=== PATIENT | male | born 1940 | race Caucasian/White ===

== ENCOUNTER → 2018-11-24 | Outpatient (CLI) | payer BC ==
[~2018-11-24] VITALS: Ht 180.3 cm; Wt 99.8 kg
[~2018-11-24] MED LIST: ADENOSINE 84 MG in GIVE UN-DILUTED 0 ML IV STA
[2018-11-24 09:07] LABS: Eosinophils # (auto) 0.2 uL; Eosinophils % (auto) 2.7 % (0.0-7.0); Hemoglobin 15.3 g/dL (13.5-17.5); Monocytes # (auto) 0.8 uL; Nucleated Red Blood Cells % 0.1 %; Platelet Count (auto) 216 10^3/uL (140-450); White Blood Cell 8.5 10^3/uL (4.4-10.8)
[2018-11-24 09:09] LABS: Basophils # (auto) 0.1 uL; Basophils % (auto) 0.7 % (0.0-2.0); Hematocrit 44.9 % (41.0-53.0); Lymphocytes # (auto) 3.1 uL; Lymphocytes % (auto) 36.1 % (10.0-50.0); Mean Corpuscular Hemoglobin 34.9 pg (28.0-32.0); Mean Corpuscular Hgb Conc. 34.1 g/dL (32.0-36.0); Mean Corpuscular Volume 102.4 fL (80.0-100.0); Monocytes % (auto) 9.2 % (0.0-12.0); Neutrophils # (auto) 4.3 uL; Neutrophils % (auto) 51.3 % (37.0-80.0); Red Blood Cells 4.39 10^6/uL (4.5-5.90); Red Cell Distribution Width 14.2 % (11.8-14.3)
[2018-11-24 11:42] LABS: Potassium 4.5 mmol/L (3.5-5.1)
[2018-11-24 12:22] LABS: Albumin 3.6 g/dL (3.4-5.0); BUN/Creatinine Ratio 24.2; Bilirubin, Total 0.5 mg/dL (0.2-1.0); Calcium 9.3 mg/dL (8.5-10.1); Total Protein 7.1 g/dL (6.4-8.2)
== END | disposition home or self-care (01) ==
LOC: LAB 08:37
DX: E78.00 Pure hypercholesterolemia, unspecified (principal)
CPT/HCPCS: 36415; 80053; 80061; 85025; J0153

== ENCOUNTER → 2018-11-24 | Outpatient (CLI) | payer BC | END | disposition home or self-care (01) | LOC: XYW 08:19 | PROVIDERS: ATTEND Internal Medicine | DX: R07.9 Chest pain, unspecified (principal) | CPT/HCPCS: 78452; 93017; A9500 ==

== ENCOUNTER → 2019-04-04 | Outpatient (CLI) | payer BC, MEDICARE ==
[~2019-04-04] VITALS: Ht 180.3 cm; Wt 99.8 kg
== END | disposition home or self-care (01) ==
LOC: XYW 11:15
PROVIDERS: ATTEND Internal Medicine
DX: R07.89 Other chest pain (principal)
CPT/HCPCS: 78452; 93017; A9500; J0153

== ENCOUNTER → 2019-04-06 | Outpatient (CLI) | payer BC, MEDICARE ==
[~2019-04-06] MED LIST changes: -ADENOSINE 84 MG in GIVE UN-DILUTED 0 ML IV STA; +ALBUAER3 IN; +ALEN1TAB32 PO; +ASPI-404 PO; +ATOR1TAB PO; +CALC-179 PO; +LEVO25TA6 PO; +LORA-622 PO; +MODA200T50 PO; +MULTCAP45 PO
[2019-04-06 09:26] LABS: Basophils # (auto) 0.1 uL; Neutrophils # (auto) 5.1 uL
[2019-04-06 09:29] LABS: Basophils % (auto) 0.7 % (0.0-2.0); Eosinophils # (auto) 0.2 uL; Eosinophils % (auto) 2.4 % (0.0-7.0); Hematocrit 46.5 % (41.0-53.0); Hemoglobin 15.9 g/dL (13.5-17.5); Lymphocytes # (auto) 2.9 uL; Lymphocytes % (auto) 32.2 % (10.0-50.0); Mean Corpuscular Hemoglobin 35.5 pg (28.0-32.0); Mean Corpuscular Hgb Conc. 34.3 g/dL (32.0-36.0); Mean Corpuscular Volume 103.3 fL (80.0-100.0); Monocytes # (auto) 0.8 uL; Monocytes % (auto) 8.7 % (0.0-12.0); Platelet Count (auto) 251 10^3/uL (140-450); Red Cell Distribution Width 13.9 % (11.8-14.3); White Blood Cell 9.1 10^3/uL (4.4-10.8)
[2019-04-06 09:53] LABS: Albumin 3.8 g/dL (3.4-5.0); Calcium 9.3 mg/dL (8.5-10.1); Potassium 4.3 mmol/L (3.5-5.1)
[2019-04-06 09:55] LABS: Free T4 (Free Thyroxine) 0.73 ng/dL (0.89-1.76); INR 0.93 (0.9-1.15); Partial Thromboplastin Time 24.2 sec (23.64-32.05)
[2019-04-06 09:56] LABS: Folate (Folic Acid) 23.29 ng/mL (5.38-24)
[2019-04-06 09:59] LABS: BUN/Creatinine Ratio 23.4; Bilirubin, Total 0.5 mg/dL (0.2-1.0); Total Protein 7.3 g/dL (6.4-8.2)
== END | disposition home or self-care (01) ==
LOC: LAB 09:12
PROVIDERS: ATTEND Internal Medicine
DX: E78.5 Hyperlipidemia, unspecified (principal)
CPT/HCPCS: 36415; 80053; 80061; 82306; 82607; 82746; 83036; 84154; 84439; 84443; 85025; 85610; 85730

== ENCOUNTER 2019-04-09 10:08 | Inpatient (IN) | payer BC, MEDICARE ==
[~2019-04-09] VITALS: Ht 180.3 cm; Wt 96.2 kg
[2019-04-09] MEDS ORDERED: LORA-622 PO (10:35)
[2019-04-09] MEDS ORDERED: CALC-179 PO (10:35)
[2019-04-09] MEDS ORDERED: ASPI-404 PO (10:35)
[2019-04-09] MEDS ORDERED: MULTCAP45 PO (10:35)
[2019-04-09] MEDS ORDERED: ALEN1TAB32 PO (10:35)
[2019-04-09] MEDS ORDERED: ATOR1TAB PO (10:35)
[2019-04-09] MEDS ORDERED: LEVO25TA6 PO (10:35)
[2019-04-09] MEDS ORDERED: MODA200T50 PO (10:35)
[2019-04-09] MEDS ORDERED: MIDAZOLAM HCL 1MG/1ML-2 ML VIAL ONE (10:47)
[2019-04-09] MEDS ORDERED: ANGIOMAX 250 MG VIAL IV ONE (10:47)
[2019-04-09] MEDS ORDERED: fentaNYL CITRATE 100 MCG/2 ML VL ONE (10:47)
[2019-04-09] MEDS ORDERED: SODIUM CHL 0.9% 0 ML ONE (10:48)
[2019-04-09] MEDS ORDERED: HEPARIN SODIUM (PORCINE) 5000 UNITS/ML 1ML VIAL ONE (10:49)
[2019-04-09] MEDS ORDERED: VERAPAMIL 2.5MG/ML INJ 2ML VIAL IV ONE (10:49)
[2019-04-09] MEDS ORDERED: IOHEXOL 350 MG/ML 100ML IJ ONE (11:14)
[2019-04-09] MEDS: MODAFINIL 200 MG PO SCH (12:00)
[2019-04-09] MEDS ORDERED: POLYETHYLENE GLYCOL 17 GM PWDR PO PRN (12:30)
[2019-04-09] MEDS ORDERED: ALENDRONATE SODIUM PO SCH (12:30)
[2019-04-09] MEDS ORDERED: NITROGLYCERIN 0.4 MG SL TAB SL PRN (12:30)
[2019-04-09] MEDS ORDERED: HYDROcodone-ACET 5/325MG TAB PO PRN (12:30)
[2019-04-09] MEDS ORDERED: MORPHINE SULF INJ 2 MG/ML SYRINGE 1ML IV PRN (12:30)
[2019-04-09] MEDS ORDERED: diphenhdrAMINE HCL 25 MG CAP PO PRN (12:30)
[2019-04-09] MEDS ORDERED: ACETAMINOPHEN 325 MG TAB PO PRN (12:30)
[2019-04-09] MEDS ORDERED: ZOLPIDEM TARTRATE 5 MG TAB PO PRN (12:30)
[2019-04-09] MEDS ORDERED: ONDANSETRON HCL 4 MG/2 ML VIAL IV PRN (12:30)
[2019-04-09] MEDS ORDERED: ENOXAPARIN SOD 100 MG/1 ML SYRINGE SC ONE (12:45)
[2019-04-09] MEDS ORDERED: LEVOTHYROXINE SODIUM 25 MCG TAB PO ONE (12:45)
--- NOTE | 2019-04-09 12:53 | NUR ---
Faxed transfer request/clinical information to [facility] transfer center.
[2019-04-09] MEDS: CALCIUM PO SCH (13:00)
[2019-04-09] MEDS: MAGNESIUM PO SCH (13:00)
--- NOTE | 2019-04-09 13:40 | NUR ---
S/P [facility] BR[facility]DA DIAS brought to 283 following Left Cardiac catheterization, on director of cardiac rehabilitation. Patient transferred to unit bed, connected to cloth examiner hand #66. Catheterization site assessed to right wrist for any bleeding, redness or swelling. Vasc band device in place, per field laborer nurse Imani a total of 6ml of air has been removed, no bleeding was noted. radial pulses on affected arm assessed for positive tissue perfusion. Patient instructed on need to notify staff immediately if any pain, burning or wetness to site, and any lower back pain. All questions and concerns addressed, patient verbalized understanding of all education and instruction.
[2019-04-09 13:42] VITALS: BP 150/72
[2019-04-09] MEDS ORDERED: ALBUAER3 IN (13:50)
[2019-04-09] MEDS ORDERED: ALBUTEROL SULF 2.5 MG/0.5ML(0.5%) NEB SOLN NEB PRN (14:00)
[2019-04-09 14:48] VITALS: BP 150/72
--- NOTE | 2019-04-09 15:16 | NUR ---
BARREL FINISHER AT BEDSIDE
[2019-04-09] MEDS: ACETAMINOPHEN 500 MG TAB PO PRN ×2 (16:41→23:52)
[2019-04-09] MEDS ORDERED: SODIUM CHLORIDE 0.9% 1,000 ML IV SCH (16:45)
[2019-04-09 16:47] VITALS: BP 126/59
--- NOTE | 2019-04-09 17:35 | NUR ---
Vasc band device removed remaining air removed from vasc band, site CDI, no bruising, swelling or bleeding was noted, site covered with sterile gauze, pt instructed to call immediately of any sudden, pain, swelling, or bleeding occurs, both pt and family verbalized understanding, cont care
--- NOTE | 2019-04-09 18:00 | NUR ---
RE: TRANSFER SPOKE WITH GABE (BARB CIGARETTE TIPPER) FROM [facility], STATES HE NEEDS THE MD REQUESTING THE TRANSFER TO CALL AND SPEAK WITH CARDIOTHORACIC SURGEON, MESSAGED DR ROME AND PROVIDED PHONE NUMBER , CONT CARE
--- NOTE | 2019-04-09 19:08 | NUR ---
CARDIOLOGY AT BEDSIDE DR ROME AT BEDSIDE, DISCUSSING POC WITH PT AND SPOUSE, REPORT ENDORSED TO NIGHT CINDI SOUSA
--- NOTE | 2019-04-09 19:30 | NUR ---
Opening Shift Assumed care of patient, awake and alert. No S/S of distress/SOB or pain. Insructed on POC and to callfor assist PRN, will continue to monitor for changes Q1hr and PRN. at bedside. Fall and safety precautions in place. Call light within reach.
--- NOTE | 2019-04-09 19:50 | NUR ---
Respiratory note: PT AWARE OF ORDER FOR CPAP AT [facility], DOES NOT WANT TO WEAR AT THIS TIME. PT AWARE TO CALL IF HE WANTS TO GO ON HOSPITAL CPAP. REMAINS ON RA, SPO2 95%, HR 71, RR 18. BREATH SOUNDS CLEAR/DIMINISHED THROUGHOUT. NO PRN TX GIVEN, NOT INDICATED. AT BEDSIDE.
--- NOTE | 2019-04-09 20:08 | NUR ---
VINH GURROLA Patient requesting laxative, states he normally takes one at home. Dr. Gipson contacted for orders. New orders received, will input and carry out.
[2019-04-09] MEDS ORDERED: BISACODYL 5 MG EC TAB PO ONE (20:15)
[2019-04-09] MEDS ORDERED: BISACODYL 5 MG EC TAB PO PRN (20:15)
[2019-04-09] MEDS: ENOXAPARIN SOD 100 MG/1 ML SYRINGE SC SCH ×2 (21:04→21:12)
[2019-04-09] MEDS: ATORVASTATIN 20 MG TAB PO SCH ×2 (21:04→21:12)
[2019-04-09 21:48] VITALS: BP 125/74
[2019-04-09] MEDS ORDERED: ATORVASTATIN 20 MG TAB PO SCH (22:00)
--- NOTE | 2019-04-09 22:00 | NUR ---
REFUSING Patient refusing scheduled 2200 medications, stating "already took them this morning." Scheduled 2200 medications not administered. Patient also refusing to be connected to IV fluids, stating "I can't sleep with this." Patient disconnected from IV fluids. Will continue to monitor
--- NOTE | 2019-04-09 23:50 | NUR ---
CHEST PAIN Patient called complaining of chest pain 11/20. Upon entering room, patient stated chest pain has subsided. Vitals taken; BP 135/80, HR 79, O2 94% on RA. EKG done, showing "SR with frequent PVCs." Informed patient that per chest pain protocol, nitro is to be administered. Patient refusing nitro and morphine, requesting tylenol for headache. Patient medicated with PRN medication (see emar). EKG shown to hospitalist Porfirio Barragan EMAIL MARKETING INTERN and was informed of patient's complaints. New orders received, will input and carry out. Will continue to monitor
[2019-04-10] VITALS (11 sets, daily range): BP systolic 106–156; BP diastolic 65–91
--- NOTE | 2019-04-10 00:10 | NUR ---
LAB Zinc Chloride Operator at bedside for lab draws
--- NOTE | 2019-04-10 00:21 | NUR ---
CHEST PAIN Patient called and complained of chest pain. Upon entering room, patient stated chest pain has subsided again. Vitals taken; BP 144/75, HR 75, O2 93% on RA. Offered patient nitro and morphine, refused. attempted to educate patient that chest pain could be cardiac related and to accept nitro and morphine, patient still refusing. Patient stood up and stated chest pain is "acid reflux." Patient stated he normally takes TUMS at home before bed. Informed patient that hospitalist will be paged for orders at 0100. Will continue to monitor
[2019-04-10 00:42] LABS: Anion Gap 6 (5-15); BUN/Creatinine Ratio 20.2; Blood Urea Nitrogen 18 mg/dL (7-18); Calcium 8.2 mg/dL (8.5-10.1); Carbon Dioxide 29 mmol/L (21-32); Chloride 104 mmol/L (98-107); GFR African American 107 mL/min; GFR Non-African American 88 mL/min; Glucose 91 mg/dL (74-106); Magnesium 2.2 mg/dL (1.6-2.6); Sodium 139 mmol/L (136-145)
[2019-04-10] MEDS ORDERED: CALCIUM CARB 500 MG CHEW TAB PO PRN (01:00)
[2019-04-10] MEDS ORDERED: CALCIUM CARB 500 MG CHEW TAB ONE (01:11)
--- NOTE | 2019-04-10 01:31 | NUR ---
CHEST PAIN Patient called and complained of chest pain 6/10. Upon entering room, patient stated chest pain has subsided. Vitals taken; BP 156/69, HR 81, O2 91% on RA. Patient accepted nitro at this time (see emar). Continued to stay in room. At 0135: vitals taken again; BP 106/65, HR 89, O2 93%, chest pain 0/10. Patient refused second dose of nitro at this time. Informed him to call if chest pain returns. Patient and verbalized understanding. Will continue to monitor
--- NOTE | 2019-04-10 02:03 | NUR ---
VINH Gipson informed of all events throughout night so far, including lab results and orders received from hospitalist Porfirio Barragan NP. New orders received from Dr. Gipson. Will input and carry out. Will continue to monitor patient.
--- NOTE | 2019-04-10 04:19 | NUR ---
CHEST PAIN Patient called complaining of chest pain. Upon entering room with secondary RN, patient was found standing in doorway. Vitals taken; BP 117/66, HR 88, O2 94% on RA. EKG done, showing "normal sinus rhythm, 81bpm." Patient stated chest pain only occurs when lying down, but subsides with sitting or standing. Patient medicated with PRN morphine (see emar) and informed to call if chest pain reoccurs. Patient verbalized understanding and agreement, ambulated self with steady gait back to room and to bed. EKG placed in chart. Will continue to monitor.
[2019-04-10] MEDS ORDERED: PANTOPRAZOLE 40 MG TAB PO ONE (07:00)
[2019-04-10] MEDS ORDERED: LEVOTHYROXINE SODIUM 25 MCG TAB PO SCH (07:00)
[2019-04-10] MEDS: MODAFINIL 200 MG PO SCH (08:00)
--- NOTE | 2019-04-10 08:00 | NUR ---
OPENING NOTE ASSUMED CARE OF PATIENT AWAKE AND ALERT. NO S/S OF DISTRESS NOTED. PT DENIES CHEST PAIN AT THIS TIME. PT AND UPDATED ON POC AND ALL QUESTIONS ANSWERED. BED IS IN LOWEST, LOCKED POSITION WITH SIDE RAILS UP X2 AND CALL LIGHT WITHIN REACH. WILL CONTINUE TO MONITOR Q1H AND PRN.
--- NOTE | 2019-04-10 08:55 | NUR ---
Transfer: E mailed Jonelle Jama at [facility] to see if I have authorization to send pt to [facility]. [facility] left message with Yari BARBER that they have bed for pt.
[2019-04-10] MEDS: MULTIPLE VITAMIN TAB PO SCH (09:18)
[2019-04-10] MEDS: LORATADINE 10 MG TAB PO SCH (09:18)
[2019-04-10] MEDS: LEVOTHYROXINE SODIUM 25 MCG TAB PO SCH (09:19)
[2019-04-10] MEDS: MAGNESIUM PO SCH (09:20)
[2019-04-10] MEDS: ENOXAPARIN SOD 100 MG/1 ML SYRINGE SC SCH ×2 (09:20→21:36)
[2019-04-10] MEDS: CALCIUM PO SCH (09:20)
--- NOTE | 2019-04-10 09:42 | NUR ---
Transfer: Dylan CANALES informed me that pt has auth for transfer but she did not have auth #. I called Jonelle Jama and had to leave her a message to give me auth # for transport and facility, she has not e mailed me back.
--- NOTE | 2019-04-10 09:47 | NUR ---
TRANSFER RECEIVED PHONE CALL FROM JAVIER AT [facility]. REQUESTING TO SPEAK TO [employer]. TRANSFERRED TO AND PROVIDED WITH CONTACT INFORMATION.
--- NOTE | 2019-04-10 09:55 | NUR ---
Transfer: was informed by Courtney at [facility] they do not have a bed as of yet. Jonelle toledo mailed me back and am waiting for response for auth
[2019-04-10] MEDS ORDERED: ASPirin-EC 81 mg tab PO SCH (10:00)
--- NOTE | 2019-04-10 10:00 | NUR ---
AT BEDSIDE DR. JUSTICE AT BEDSIDE DISCUSSING POC WITH PT.
--- NOTE | 2019-04-10 11:45 | NUR ---
Respiratory note: PATIENT SEEN FOR PRN MED-NEB TX. MED-NEB NOT INDICATED AT THIS TIME PATIENT IS IN NO ACUTE RESPIRATORY DISTRESS AND DENIES NEED. PATIENT INSTRUCTED TO CALL FOR RT IF HE FELT THE NEED FOR TX AT A LATER TIME. SPO2 97% R/A
--- NOTE | 2019-04-10 14:00 | NUR ---
AMA PATIENT REQUESTING TO GO OFF UNIT. PATIENT EDUCATED ON DANGERS OF LEAVING UNIT BECAUSE HE WILL NOT BE MONITORED/TELEMETRY MONITORED. PATIENT VERBALIZED UNDERSTANDING. AMA FORM SIGNED. PATIENT WHEELED TO OFFICE BY OFFICE STAFF.
--- NOTE | 2019-04-10 14:05 | NUR ---
SPOKE TO MD DR. ROME ON UNIT. INQUIRING TO WHERE PATIENT IS. INFORMED THAT PATIENT SIGNED AMA TO LEAVE UNIT. SPOKE TO MD REGARDING PATIENTS C/O CHEST PAIN ON NOC SHIFT. PATIENT HAS HAD NO EPISODES OF CHEST PAIN ON DAY SHIFT. ORDERS RECEIVED FOR: STAT EKG FOR ALL C/O CHEST PAIN AND TO CONTACT DR. ROME FOR UPGRADE ORDERS. Addendum: 04/10/19 at 1421 by Annemarie Delaney RN RN MD ALSO REQUESTING PATIENT BE PLACED ON PROTONIX PO 40 MG DAILY.
--- NOTE | 2019-04-10 14:18 | NUR ---
RETURNED TO UNIT PATIENT RETURNED TO UNIT. DENIES ANY DISTRESS AT THIS TIME. RE-ENCOURAGED TO NOTIFY STAFF FOR ALL C/O CHEST PAIN. VERBALIZED UNDERSTANDING. CALL LIGHT WITHIN REACH.
--- NOTE | 2019-04-10 15:34 | NUR ---
Transfer: Transfer on hold until Heather at [facility] aware of on hold status.
--- NOTE | 2019-04-10 15:51 | NUR ---
SPOKE TO MD SPOKE TO DR. JUSTICE REGARDING PT REQUEST FOR IBUPROFEN. MD TO PLACE ORDER.
[2019-04-10] MEDS ORDERED: IBUPROFEN 400 MG TAB PO PRN ×2 (16:00)
--- NOTE | 2019-04-10 16:00 | NUR ---
SPOKE TO SPOKE TO DR. JUSTICE. PT REQUESTING IBUPROFEN 600MG. OKAY WITH DOSE BEING INCREASED.
--- NOTE | 2019-04-10 16:16 | NUR ---
MEDICATION RETURNED IBUPROFEN REMOVED FROM [facility]. WENT TO PATIENTS ROOM TO ADMINISTER, PT NOW STATING HE DOES NOT WANT THE MEDICATION, BUT JUST WANTED 'TO MAKE SURE [I] HAD SOMETHING TO TAKE IF I NEEDED IT'. PT REQUESTING TO KEEP MEDICATION AT BEDSIDE FOR 'WHEN [HE] NEEDS IT'. INFORMED PT I CANNOT LEAVE MEDICATION AT BEDSIDE. PT RELUCTANT, BUT VERBALIZED UNDERSTANDING. MEDICATION RETURNED TO [facility].
--- NOTE | 2019-04-10 16:40 | NUR ---
CPAP PATIENT STATING HIS CPAP MACHINE IS NOT WORKING. INFORMED RT, SPOKE TO ESTHER, REGARDING PT REQUEST FOR REPLACEMENT CPAP. AWARE.
--- NOTE | 2019-04-10 18:38 | NUR ---
Respiratory note: NO PRN TX GIVEN AT THIS TIME, PT DENIES SOB OR NEED FOR PRN TX. SPO2 95% ON RA, HR 96, RR 18. BREATH SOUNDS CLEAR THROUGHOUT. PT STATES HE WILL GO ON CPAP BETWEEN 2100 AND 2200, AWARE TO CALL FOR CPAP OR PRN TX. NO DISTRESS NOTED, WILL CONTINUE WITH CARE.
--- NOTE | 2019-04-10 21:17 | NUR ---
Respiratory note: PT CALLED FOR CPAP AT THIS TIME. ADJUSTED PTS PRESSURES AND MEDIUM MASK TO COMFORTABLE LEVEL/FIT. NO SKIN BREAKDOWN NOTED. HOSPITAL OWNED HOME CPAP SET TO 8cmH20. HUMIDIFIER SET TO 2 AND FILLED TO FILL LINE WITH STERILE WATER. CPAP IS PLUGGED INTO RED OUTLET. PT REFUSING CONT. PULSE OX MONITOR AT THIS TIME, STATES HE WILL BE FINE WITHOUT IT, DOESN'T USE ONE AT HOME. PT THEN TOOK MASK OFF, STATES HE WILL GO ON CPAP AROUND 2300. WILL CHECK BACK AT THAT TIME. PT DENIES ANY OTHER NEEDS, AWARE TO CALL FOR ASSISTANCE.
[2019-04-10] MEDS: CARVEDILOL 3.125 MG TAB PO SCH (21:33)
[2019-04-10] MEDS: ATORVASTATIN 20 MG TAB PO SCH (21:34)
--- NOTE | 2019-04-10 23:25 | NUR ---
PAIN PATIENT REPORTS PAIN RATED 3/10 TO CHEST. PATIENT STATES IT IS "NON-CARDIAC RELATED". PATIENT REFUSES EKG. INSTRUCTED PATIENT OF REQUIREMENT OF EKG FOR EACH EPISODE OF CHEST PAIN PER MD ORDERS. PATIENT STILL REFUSES. PATIENT GIVEN PRN PAIN MEDICATION ORDERED.
--- NOTE | 2019-04-10 23:25 | NUR ---
Respiratory note: PT REMAINS OFF CPAP AT THIS TIME. CPAP ON STANDBY AT BEDSIDE, PT APPEARS TO BE SLEEPING COMFORTABLY. RN NOTIFIED TO CALL IF PT GOES ON CPAP/NEEDS ASSISTANCE.
[2019-04-11] VITALS (8 sets, daily range): BP systolic 103–151; BP diastolic 62–86
--- NOTE | 2019-04-11 01:32 | NUR ---
PATIENT SITTING UP AT BEDSIDE WITH NO S/S OF DISTRESS NOTED. PATIENT DENIES PAIN AT THIS TIME.
--- NOTE | 2019-04-11 03:41 | NUR ---
Hospitalist paged PATIENT REQUESTING IBUPROFEN 600 MG. PATIENT STATES THEY ARE ALLOWED TO TAKE IT FOUR TIMES A DAY. PATIENT RECEIVED DOSE 4 HOURS AGO. WILL AWAIT CALL BACK OR ORDERS.
--- NOTE | 2019-04-11 03:59 | NUR ---
ORDERS RECEIVED PATIENT ALSO REFUSING EKG PER STANDING ORDER AT THIS TIME. PATIENT STATES PAIN IS POSITIONAL. WILL CONTINUE TO MONITOR. INFORMED PRIMARY RN AT THIS TIME.
[2019-04-11] MEDS ORDERED: IBUPROFEN 600 MG TAB PO ONE (04:00)
--- NOTE | 2019-04-11 06:55 | NUR ---
PATIENT RESTING WITH EYES CLOSED. NO S/S OF DISTRESS NOTED.
--- NOTE | 2019-04-11 07:16 | NUR ---
Respiratory note: PT FOUND TO BE OFF CPAP AT THIS TIME SLEEPING WITH NO DISTRESS NOTED. PT EASILY AWAKES AND STATES HE IS HAVING TROUBLE WITH CPAP MASK COMFORT. PT STATES HE EVEN BROUGHT HIS FROM HOME AND STATES HE "JUST CAN'T GET IT TOO FIT RIGHT". PT HAS NO CURRENT C/O SOB OR DIFF BREATHING, NO PRN MED NEB TX INDICATED AT THIS TIME. PT AND RN AWARE TO HAVE RT PAGED IF NEEDED. HR 76 RR 16 SPO2 93% ON RA.
--- NOTE | 2019-04-11 07:30 | NUR ---
PATIENT RESTING WITH EYES CLOSED. NO S/S OF DISTRESS NOTED.
[2019-04-11] MEDS: MODAFINIL 200 MG PO SCH (08:00)
[2019-04-11] MEDS: MULTIPLE VITAMIN TAB PO SCH (09:42)
[2019-04-11] MEDS: PANTOPRAZOLE 40 MG TAB PO SCH (09:42)
[2019-04-11] MEDS: CARVEDILOL 3.125 MG TAB PO SCH ×2 (09:43→21:59)
[2019-04-11] MEDS: ENOXAPARIN SOD 100 MG/1 ML SYRINGE SC SCH ×2 (09:43→22:00)
[2019-04-11] MEDS: LEVOTHYROXINE SODIUM 25 MCG TAB PO SCH (09:43)
[2019-04-11] MEDS: LORATADINE 10 MG TAB PO SCH (09:43)
[2019-04-11] MEDS: MAGNESIUM PO SCH (09:51)
[2019-04-11] MEDS: CALCIUM PO SCH (09:51)
[2019-04-11] MEDS ORDERED: NTG 0.1MG/HR TOPICAL PATCH TD PRN (10:00)
[2019-04-11] MEDS: IBUPROFEN 400 MG TAB PO PRN ×2 (10:49→23:36)
--- NOTE | 2019-04-11 12:01 | NUR ---
PATIENT MOVED TO ROOM 292A. ALL BELONGINGS TAKEN WITH HIM, AT BEDSIDE.
--- NOTE | 2019-04-11 19:00 | NUR ---
Opening Shift Note Assumed care of patient, awake and alert. No S/S of distress/SOB or pain. Instructed on POC and to call for assist PRN, will continue to monitor for changes Q1hr and PRN.
--- NOTE | 2019-04-11 21:54 | NUR ---
Patient refused some of his 2200 medications and also informed RN that he does not want to be woken up until 0730 tomorrow morning for his morning vital signs and would like to get some sleep tonight. RN informed patient to make nurse aware of any changes in condition or if not feeling well. RN is to continue to monitor and assess patient Q 1 hr and PRN.
[2019-04-11] MEDS: ATORVASTATIN 20 MG TAB PO SCH (22:02)
--- NOTE | 2019-04-12 00:38 | NUR ---
Hospitalist paged: Hospitalist paged regarding patient requesting "Tylenol 500mg" for mild pain.
--- NOTE | 2019-04-12 00:39 | NUR ---
Hospitalist returned page: Hospitalist returned page and updated on patient condition and request. New orders received and verified.
[2019-04-12] MEDS ORDERED: ACETAMINOPHEN 500 MG TAB PO ONE ×2 (00:44→00:45)
[2019-04-12] MEDS: IBUPROFEN 400 MG TAB PO PRN ×2 (05:20→21:09)
--- NOTE | 2019-04-12 07:39 | NUR ---
RECEIVED REPORT FROM NIGHT NURSE. PATIENT RESTING IN BED, NO DISTRESS NOTED. WILL CONTINUE TO MONITOR.
[2019-04-12] MEDS: MODAFINIL 200 MG PO SCH (08:00)
[2019-04-12 09:00] VITALS: BP 130/80
--- NOTE | 2019-04-12 09:22 | NUR ---
RT NOTE: WENT TO PTS ROOM TO ASSESS FOR PRN BREATHING TX, PT LAYING DOWN IN BED, NO S/S OF SOB. HR 66, SPO2 94%, RR 16. NO INDICATION FOR TX AT THIS TIME. WILL CONTINUE TO MONITOR PT.
[2019-04-12] MEDS: ENOXAPARIN SOD 100 MG/1 ML SYRINGE SC SCH ×2 (09:55→22:00)
[2019-04-12] MEDS: MULTIPLE VITAMIN TAB PO SCH (09:56)
[2019-04-12] MEDS: LEVOTHYROXINE SODIUM 25 MCG TAB PO SCH (09:56)
[2019-04-12] MEDS: LORATADINE 10 MG TAB PO SCH (09:56)
[2019-04-12] MEDS: CARVEDILOL 3.125 MG TAB PO SCH ×2 (09:56→22:00)
[2019-04-12] MEDS: PANTOPRAZOLE 40 MG TAB PO SCH (09:56)
[2019-04-12] MEDS: CALCIUM PO SCH (10:00)
[2019-04-12] MEDS: MAGNESIUM PO SCH (10:00)
--- NOTE | 2019-04-12 11:51 | NUR ---
Nutrition Assessment Notes please see attached link for complete assessment Est. Needs BW 95 [id number] kcal (23-25 kcal/kgBW), 95-104 gms pro (1.0-1.1 gms/kgBW). Will continue to monitor pertinent labs and reassess nutrient need prn Addendum: 04/12/19 at [address] Amended: Links added.
[2019-04-12 13:00] VITALS: BP 128/78
[2019-04-12] MEDS ORDERED: TEMAZEPAM 15 MG CAP PO PRN (13:15)
[2019-04-12 17:30] VITALS: BP 145/78
--- NOTE | 2019-04-12 18:14 | NUR ---
Respiratory note: ASSESSMENT FOR PRN MED NEB TX. HR 61, SPO2 96% ON ROOM AIR RR 17, BS DIMINISHED. PT PRESENTING NO RESPIRATORY DISTRESS AT THIS TIME. MED NEB TX NOT INDICATED. PT STATES HE DOES NOT WANT TO USE CPAP TONIGHT, PT AWARE TO HAVE RT PAGED IF TREATMENT IS NEEDED. WILL CONTINUE TO MONITOR.
--- NOTE | 2019-04-12 21:30 | NUR ---
Hospitalist paged: Hospitalist paged d/t patient requesting to have Tylenol 500 PRN for mild pain. Hospitalist returned page immediately and new orders received and verified.
[2019-04-12] MEDS ORDERED: ACETAMINOPHEN 500 MG TAB PO PRN (21:45)
[2019-04-12 22:00] VITALS: BP 132/76
--- NOTE | 2019-04-12 22:00 | NUR ---
Patient refused some of his 2199 medications including his Coreg d/t his heart rate being 59. Patient also informed RN that he does not want to be woken up until 0730 tomorrow morning for his morning vital signs and would like to get some sleep tonight just as yesterday. RN informed patient to make nurse aware of any changes in condition or if not feeling well. RN is to continue to monitor and assess patient Q 1 hr and PRN.
[2019-04-12] MEDS: ATORVASTATIN 20 MG TAB PO SCH (22:20)
[2019-04-12] MEDS: ACETAMINOPHEN 500 MG TAB PO PRN (23:33)
[2019-04-13 02:43] VITALS: BP 132/76
[2019-04-13] MEDS: CALCIUM CARB 500 MG CHEW TAB PO PRN (03:29)
[2019-04-13 05:00] VITALS: BP 146/82
[2019-04-13] MEDS: ACETAMINOPHEN 500 MG TAB PO PRN (05:12)
--- NOTE | 2019-04-13 07:59 | NUR ---
RE: [place] lea Romero RN from [facility], called to receive an update. Call transferred to SUNIL Gomez.
[2019-04-13] MEDS: MODAFINIL 200 MG PO SCH (08:05)
--- NOTE | 2019-04-13 08:15 | NUR ---
PT. ASSESSED FOR MN. TX., NO RESP. DISTRESS OR SOB NOTED. PT. SITTING IN A CHAIR, FINISHING WITH HIS BREAKFAST. IN ROOM AT THIS TIME. HR=64,RR=16,SP02=94% ON RA. PT. STATES TX. NOT NEEDED AT THIS TIME. PT. IS AWARE HE MAY CALL IF HE NEEDS ONE. NO TX. GIVEN
--- NOTE | 2019-04-13 08:15 | NUR ---
Morning note patient sitting in chair at bedside with even and unlabored respirations, no distress noted. Instructed patient on POC, fall precautions and to call for assistance as needed. patient verbalized understanding. Fall precautions in place with bed in lowest locked position, x2 side rails up and call light within reach. Patient's spouse at bedside. Will continue to monitor q1hr & PRN.
[2019-04-13 09:00] VITALS: BP 131/75
--- NOTE | 2019-04-13 09:00 | NUR ---
I called [facility] transfer center and spoke with Ricky to confirm that we are still needing a bed for this patient-and that we had faxed updated clinical information yesterday afternoon and spoke with Ananda. Per Ricky she will have Heather call me when a bed becomes available.
[2019-04-13] MEDS: CALCIUM PO SCH (10:00)
[2019-04-13] MEDS: MAGNESIUM PO SCH (10:00)
[2019-04-13] MEDS: LORATADINE 10 MG TAB PO SCH (10:27)
[2019-04-13] MEDS: MULTIPLE VITAMIN TAB PO SCH (10:27)
[2019-04-13] MEDS: CARVEDILOL 3.125 MG TAB PO SCH ×2 (10:28→22:11)
[2019-04-13] MEDS: LEVOTHYROXINE SODIUM 25 MCG TAB PO SCH (10:28)
[2019-04-13] MEDS: ENOXAPARIN SOD 100 MG/1 ML SYRINGE SC SCH ×2 (10:29→22:11)
[2019-04-13] MEDS: PANTOPRAZOLE 40 MG TAB PO SCH (10:29)
--- NOTE | 2019-04-13 10:45 | NUR ---
Patient ambulating Steady gait, no distress noted. Patient spouse at his side.
[2019-04-13 13:00] VITALS: BP 115/74
--- NOTE | 2019-04-13 14:32 | NUR ---
RE: renal social worker spoke with SUNIL Greenberg, to receive update on transfer. This RN to be notified when patient is assigned to a bed at [facility].
--- NOTE | 2019-04-13 14:51 | NUR ---
Patient resting in bed with even and unlabored respirations, no distress noted. Call light within reach. Patient's spouse at bedside. Will continue to monitor q1hr & PRN.
--- NOTE | 2019-04-13 14:55 | NUR ---
Information provided to patient Information received from SUNIL Greenberg, provided to the patient. - [facility] ext. [phone]
--- NOTE | 2019-04-13 15:09 | NUR ---
I placed [facility] on will-call pending transfer to [facility]-Medicare form faxed to [facility]-provided them with patient's Medicare # [id number]. I called [facility] to check on patient's replacement CPAP tubing, they are asking for specific information on CPAP machine-provided contact information to nurse Yin to provide to patient ([facility] [phone] [email or web address] for Maru).
[2019-04-13 17:22] VITALS: BP 115/67
--- NOTE | 2019-04-13 18:50 | NUR ---
Closing note patient resting in bed with even and unlabored respirations, no distress noted. Fall precautions in place with bed in lowest locked position, x2 side rails up and call light within reach.
--- NOTE | 2019-04-13 19:20 | NUR ---
Care endorsed to CINDI Razo.
--- NOTE | 2019-04-13 19:26 | NUR ---
RT NOTE PT WAS SEEN BY RT FOR PRN HHN TX. PT IS SLEEPING WITHOUT SOB OR DISTRESS. NO PRN HHN TX INDICATED AT THIS TIME. HR 86, RR 18, BS CLEAR/DIM, POX 96% ON ROOM AIR. PT AWARE TO CALL IF TX NEEDED. RT WILL RETURN TO SEE WHEN PT WANTS TO GO ON CPAP IN A LITTLE BIT. Addendum: 04/13/19 at 1928 by Erica Garcia RT Amended: Links added.
[2019-04-13 22:00] VITALS: BP 131/69
[2019-04-13] MEDS: ATORVASTATIN 20 MG TAB PO SCH (22:10)
--- NOTE | 2019-04-13 22:27 | NUR ---
RT NOTE PT WAS SEEN BY RT FOR PLACEMENT OF CPAP FOR NOC USE. PT PLACED ON HOSPITAL OWNED CPAP, RESPIRATORY 1, WITH NASAL MASK. CPAP IS PLUGGED TO RED OUTLET. HUMIDIFIER IS FILLED TO FILL LINE AND SET TO 3 HUMIDITY. PT WORE CPAP LESS THAN 2 MINUTES STATING THAT IT IS TOO LOUD AND HE CANNOT WEAR IT TONIGHT. PT AWARE OF RISKS NOT WEARING CPAP AND WILL CALL IF HE CHANGES HIS MIND. PT WAS OFFERED SUPPLEMENTAL O2 VIA NASAL CANNULA IN LIEU OF CPAP AND HE REFUSED THAT WELL. RT REQUESTED PT TO WEAR BEDSIDE POX SO THAT WE COULD MONITOR HIM WHILE SLEEPING, PT REFUSED STATING HE DOES NOT HAVE ONE AT HOME AND WILL BE FINE WITHOUT IT HERE. CONT ORDERED Addendum: 04/14/19 at 0031 by Erica Garcia RT Amended: Links added.
[2019-04-13] MEDS: IBUPROFEN 400 MG TAB PO PRN (23:11)
[2019-04-14] MEDS: CALCIUM CARB 500 MG CHEW TAB PO PRN (00:06)
--- NOTE | 2019-04-14 00:45 | NUR ---
REPORT GIVEN TO EMILIANO/RN TO ASSUME CARE OF PATIENT.
--- NOTE | 2019-04-14 00:45 | NUR ---
Received patient from Dung PUENTE. Patient is resting in bed, no complaints of pain, SOB, or distress. Call light is within reach. Will continue to monitor.
[2019-04-14] MEDS: ACETAMINOPHEN 500 MG TAB PO PRN (04:06)
[2019-04-14 05:00] VITALS: BP 119/69
--- NOTE | 2019-04-14 05:46 | NUR ---
Bed for [facility] Baron from case management called. Patient has been accepted to [facility] unit 7100, room #1 bed #3. The accepting MD is Dionicio. Phone number for report is [phone]. [facility] is siphon operator. If any questions, phone number to reach [facility] is [phone].
--- NOTE | 2019-04-14 06:18 | NUR ---
Called Christian due to paperwork not being filled out by discharging MD, she asked if the hospitalist, could do it. The hospitalist stated he did not feel comfortable filling out transfer paperwork on a patient he has not seen or is familiar with. Phone number provided for Dr. Gipson, , to call for transfer orders.
--- NOTE | 2019-04-14 06:36 | NUR ---
Called phone number provided for Dr. Gipson, , regarding transfer orders, the number called has a voicemail box that has not been set up yet. Will try calling again.
--- NOTE | 2019-04-14 07:11 | NUR ---
Called [facility], spoke with Ninoska, transport to be here for warehouse order picker around 10:00am.
--- NOTE | 2019-04-14 07:15 | NUR ---
Called [facility] to give report and time for transport, spoke with Lenka. Phone number provided for call back, she stated her battery charger will give a call back in 15-20 minutes.
[2019-04-14 08:00] VITALS: BP 121/75
[2019-04-14] MEDS: MODAFINIL 200 MG PO SCH (08:00)
--- NOTE | 2019-04-14 08:04 | NUR ---
Called [facility] and gave report to Lucie PUENTE. All questions and concerns answered. Updated her on time the [facility] will be picking up the patient, she verbalized understanding.
--- NOTE | 2019-04-14 08:12 | NUR ---
Endorsed care to Chantal PUENTE.
[2019-04-14 09:00] VITALS: BP 121/75
[2019-04-14] MEDS: PANTOPRAZOLE 40 MG TAB PO SCH (09:20)
[2019-04-14] MEDS: MULTIPLE VITAMIN TAB PO SCH (09:20)
[2019-04-14] MEDS: LEVOTHYROXINE SODIUM 25 MCG TAB PO SCH (09:20)
[2019-04-14] MEDS: LORATADINE 10 MG TAB PO SCH (09:20)
[2019-04-14] MEDS: ENOXAPARIN SOD 100 MG/1 ML SYRINGE SC SCH (09:20)
[2019-04-14] MEDS: CARVEDILOL 3.125 MG TAB PO SCH (09:21)
[2019-04-14] MEDS: MAGNESIUM PO SCH (09:23)
[2019-04-14] MEDS: CALCIUM PO SCH (09:23)
--- NOTE | 2019-04-14 09:50 | NUR ---
PT. ASSESSED FOR MN. TX., NO RESP. DISTRESS OR SOB NOTED. PT. IS SITTING UP IN A CHAIR AWAITING TRANSPORT TO [facility]. HR=71,RR=16,SP02=95% ON RA. PRN. TX. NOT INDICATED AT THIS TIME. NO TX. GIVEN.
--- NOTE | 2019-04-14 10:31 | NUR ---
Discharge instructions given as ordered. Encourage to follow up with PMD as instructed. All questions and concerns addressed. Patient verbalized understanding. Medication reconciliation form completed and copy given to patient. No Home medications held in Pharmacy and none to be returned to patient, and no needed vaccines given. IV left in place for acute transfer per the request of [facility]. Telemetry unit returned to ICU. Patient taken to vehicle via gurney with all personal belongings, accompanied by staff and [facility] transport. No distress noted at time of departure. aware of departure.
[2019-04-16] MEDS ORDERED: ALENDRONATE SODIUM 10 MG TAB PO SCH (06:30)
== END 2019-04-14 10:24 | disposition short-term general hospital (02) | DRG 287 ==
LOC: CATH 10:08 → EEVIPCON 10:09 → TELE-WESTW 10:09
PROVIDERS: ADMIT Internal Medicine; ATTEND Internal Medicine
PROC: 4A023N7 Measurement of Cardiac Sampling and Pressure, Left Heart, Percutaneous Approach (ICD-10-PCS; principal; 2019-04-09)
PROC: B2111ZZ Fluoroscopy of Multiple Coronary Arteries using Low Osmolar Contrast (ICD-10-PCS; 2019-04-09)
PROC: B2151ZZ Fluoroscopy of Left Heart using Low Osmolar Contrast (ICD-10-PCS; 2019-04-09)
DX: I25.10 Atherosclerotic heart disease of native coronary artery without angina pectoris (principal); I65.23 Occlusion and stenosis of bilateral carotid arteries; E03.9 Hypothyroidism, unspecified; G47.33 Obstructive sleep apnea (adult) (pediatric); M81.0 Age-related osteoporosis without current pathological fracture; I65.09 Occlusion and stenosis of unspecified vertebral artery; Z79.899 Other long term (current) drug therapy
CPT/HCPCS: 36415; 80048; 83735; 84484; 93306; 93886; 94660; 99152; G0378; J2250

== ENCOUNTER → 2019-10-11 | Outpatient (CLI) | payer MEDICARE, OTHER | END | disposition home or self-care (01) | LOC: XYW 09:49 | PROVIDERS: ATTEND Internal Medicine | DX: I08.3 Combined rheumatic disorders of mitral, aortic and tricuspid valves (principal); Z95.1 Presence of aortocoronary bypass graft | CPT/HCPCS: 93306 ==

== ENCOUNTER → 2019-10-24 | Outpatient (CLI) | payer MEDICARE, OTHER ==
[~2019-10-24] VITALS: Ht 182.9 cm; Wt 93.0 kg
[~2019-10-24] MED LIST changes: +ADENOSINE 78 MG in GIVE UN-DILUTED 0 ML IV STA
== END | disposition home or self-care (01) ==
LOC: XY 08:12
PROVIDERS: ATTEND Internal Medicine
DX: R07.9 Chest pain, unspecified (principal)
CPT/HCPCS: 78452; 93017; A9500; J0153

== ENCOUNTER 2019-11-02 08:12 | Inpatient (IN) | payer MEDICARE, OTHER ==
[2019-10-30 11:33] LABS: Basophils # (auto) 0.1 10 ^3/uL (0-0.2); Eosinophils # (auto) 0.2 10 ^3/uL (0-0.8); Hemoglobin 14.8 g/dL (13.5-17.5)
[2019-10-30 11:36] LABS: Basophils % (auto) 1.2 % (0.0-2.0); Eosinophils % (auto) 2.8 % (0.0-7.0); Hematocrit 44.8 % (41.0-53.0); Mean Corpuscular Hemoglobin 34.4 pg (28.0-32.0); Mean Corpuscular Hgb Conc. 33.1 g/dL (32.0-36.0); Monocytes # (auto) 0.7 10 ^3/uL (0-1.3); Monocytes % (auto) 9.6 % (0.0-12.0); Neutrophils % (auto) 57.4 % (37.0-80.0); Platelet Count (auto) 221 10^3/uL (140-450); Red Blood Cells 4.31 10^6/uL (4.5-5.90); Red Cell Distribution Width 14.4 % (11.8-14.3)
[2019-10-30 11:47] LABS: INR 1.03 (0.9-1.15); Partial Thromboplastin Time 24.6 sec (23.64-32.05)
[2019-10-30 11:55] LABS: Albumin 3.4 g/dL (3.4-5.0); Calcium 8.8 mg/dL (8.5-10.1); Potassium 4.3 mmol/L (3.5-5.1)
[2019-10-30 11:58] LABS: Bilirubin, Total 0.6 mg/dL (0.2-1.0); Total Protein 6.8 g/dL (6.4-8.2)
[~2019-11-02] VITALS: Ht 180.3 cm; Wt 89.4 kg
[~2019-11-02 08:12] MED LIST changes: -ADENOSINE 78 MG in GIVE UN-DILUTED 0 ML IV STA; -ALBUAER3 IN
[2019-11-02] MEDS ORDERED: LIDOCAINE 2%HCL (LOCAL ANESTH.) INJ 20ML MDV ONE ×2 (10:27→13:03)
[2019-11-02] MEDS ORDERED: VERAPAMIL 2.5MG/ML INJ 2ML VIAL IV ONE (10:27)
[2019-11-02] MEDS ORDERED: HEPARIN SODIUM (PORCINE) 5000 UNITS/ML 1ML VIAL ONE (10:27)
[2019-11-02] MEDS ORDERED: IOHEXOL 350 MG/ML 100ML IJ ONE ×5 (10:27→11:57)
[2019-11-02] MEDS ORDERED: ANGIOMAX 250 MG VIAL IV ONE ×3 (10:29→13:20)
[2019-11-02] MEDS ORDERED: fentaNYL CITRATE 100 MCG/2 ML VL ONE ×2 (10:29→13:20)
[2019-11-02] MEDS ORDERED: SODIUM CHL 0.9% 50 ML ONE ×3 (10:30→13:21)
[2019-11-02] MEDS ORDERED: MIDAZOLAM HCL 1MG/1ML-2 ML VIAL ONE ×3 (10:30→13:20)
[2019-11-02] MEDS ORDERED: diphenhdrAMINE HCL 50 MG/1 ML VL ONE (11:57)
[2019-11-02] MEDS ORDERED: IODIXANOL 320MG/ML 100ML BTL IV ONE ×2 (12:15→13:03)
[2019-11-02] MEDS ORDERED: hydrALAZINE HCL 20 MG/ML VL ONE (13:42)
[2019-11-02] MEDS ORDERED: CLOPIDOGREL 300 MG TAB ONE (13:55)
[2019-11-02] MEDS ORDERED: MORPHINE SULF INJ 2 MG/ML SYRINGE 1ML IV PRN ×2 (14:30→15:15)
[2019-11-02] MEDS ORDERED: PANTOPRAZOLE 40 MG/10 ML VIAL INJ IV ONE (14:30)
[2019-11-02] MEDS ORDERED: NITROGLYCERIN 0.4 MG SL TAB SL PRN ×2 (14:30→15:15)
[2019-11-02] MEDS: ALUM & MAG HYDROX-SIMETH LIQ(MAALOX) 30 ML PO PRN ×3 (14:35→21:22)
[2019-11-02] MEDS ORDERED: SODIUM CHLORIDE 0.9% 1,000 ML IV SCH (15:00)
[2019-11-02] MEDS ORDERED: ACETAMINOPHEN 325 MG TAB PO PRN (15:15)
[2019-11-02] MEDS ORDERED: HYDROcodone-ACET 5/325MG TAB PO PRN (15:15)
[2019-11-02 17:00] VITALS: BP 135/75
[2019-11-02] MEDS ORDERED: PHENAZOPYRIDINE HCL 100 MG TAB PO ONE (17:45)
[2019-11-02] MEDS ORDERED: IBUPROFEN 600 MG TAB PO ONE (21:30)
[2019-11-02 21:39] VITALS: BP 135/75
[2019-11-02 22:00] VITALS: BP 126/68
[2019-11-02] MEDS ORDERED: ATORVASTATIN 20 MG TAB PO SCH (22:00)
[2019-11-03 05:00] VITALS: BP 137/70
[2019-11-03 05:42] LABS: Basophils # (auto) 0 10 ^3/uL (0-0.2); Eosinophils # (auto) 0.1 10 ^3/uL (0-0.8); Lymphocytes # (auto) 2.2 10 ^3/uL (0.4-5.4); Mean Corpuscular Hgb Conc. 33.9 g/dL (32.0-36.0); Red Blood Cells 3.98 10^6/uL (4.5-5.90)
[2019-11-03 05:46] LABS: Basophils % (auto) 0.2 % (0.0-2.0); Eosinophils % (auto) 0.9 % (0.0-7.0); Hemoglobin 13.9 g/dL (13.5-17.5); Lymphocytes % (auto) 20.5 % (10.0-50.0); Mean Corpuscular Volume 103.2 fL (80.0-100.0); Monocytes % (auto) 9.2 % (0.0-12.0); Neutrophils # (auto) 7.3 10 ^3/uL (1.6-8.6); Neutrophils % (auto) 69.2 % (37.0-80.0); Nucleated Red Blood Cells % 0.1 %; Platelet Count (auto) 189 10^3/uL (140-450); White Blood Cell 10.6 10^3/uL (4.4-10.8)
[2019-11-03 05:57] LABS: Potassium 3.9 mmol/L (3.5-5.1)
[2019-11-03 06:06] LABS: Albumin 3.1 g/dL (3.4-5.0); BUN/Creatinine Ratio 29.1; Bilirubin, Total 0.6 mg/dL (0.2-1.0); Calcium 8.2 mg/dL (8.5-10.1); Total Protein 6.1 g/dL (6.4-8.2)
[2019-11-03] MEDS ORDERED: PHENAZOPYRIDINE HCL 100 MG TAB PO SCH (08:00)
[2019-11-03 08:37] VITALS: BP 103/58
[2019-11-03 08:42] VITALS: BP 103/58
[2019-11-03] MEDS ORDERED: CLOPIDOGREL BISULFATE 75 MG TAB PO SCH (10:00)
[2019-11-03] MEDS ORDERED: ASPirin-EC 81 mg tab PO SCH (10:00)
== END 2019-11-03 10:26 | disposition home or self-care (01) | DRG 247 ==
LOC: CATH 08:12 → TELE-CENTR 15:26
PROVIDERS: ADMIT Internal Medicine; ATTEND Internal Medicine
PROC: 027034Z Dilation of Coronary Artery, One Artery with Drug-eluting Intraluminal Device, Percutaneous Approach (ICD-10-PCS; principal; 2019-11-02)
PROC: 4A023N7 Measurement of Cardiac Sampling and Pressure, Left Heart, Percutaneous Approach (ICD-10-PCS; 2019-11-02)
PROC: B2111ZZ Fluoroscopy of Multiple Coronary Arteries using Low Osmolar Contrast (ICD-10-PCS; 2019-11-02)
PROC: B2151ZZ Fluoroscopy of Left Heart using Low Osmolar Contrast (ICD-10-PCS; 2019-11-02)
PROC: B2131ZZ Fluoroscopy of Multiple Coronary Artery Bypass Grafts using Low Osmolar Contrast (ICD-10-PCS; 2019-11-02)
PROC: B2181ZZ Fluoroscopy of Left Internal Mammary Bypass Graft using Low Osmolar Contrast (ICD-10-PCS; 2019-11-02)
PROC: 5A09357 Assistance with Respiratory Ventilation, Less than 24 Consecutive Hours, Continuous Positive Airway Pressure (ICD-10-PCS; 2019-11-02)
DX: I25.10 Atherosclerotic heart disease of native coronary artery without angina pectoris (principal); I50.22 Chronic systolic (congestive) heart failure; E03.9 Hypothyroidism, unspecified; E55.9 Vitamin D deficiency, unspecified; I65.29 Occlusion and stenosis of unspecified carotid artery; G47.33 Obstructive sleep apnea (adult) (pediatric); Z79.02 Long term (current) use of antithrombotics/antiplatelets; Z95.1 Presence of aortocoronary bypass graft; Z95.5 Presence of coronary angioplasty implant and graft; Z11.59 Encounter for screening for other viral diseases
CPT/HCPCS: 36415; 80053; 80061; 82306; 84443; 85025; 85610; 85730; 92928; 93459; 94660; 99152; 99153; C1874; C1887; G0378; J2250; Q9967